=== PATIENT | male | born 1970 | race Caucasian/White ===

== ENCOUNTER 2023-04-24 10:30 | Day surgery (SDC) | payer BC ==
[2023-04-23 09:59] LABS: Absolute Lymphocytes (CBC) 2.7 K/uL (0.7-4.9); Hematocrit 43.6 % (39.6-49.0); Lymphocytes % 36.4 % (15.3-44.8); MCV 92.4 fL (80-100); MPV 8.6 fL (7.6-11.3); Platelets 194 thou/uL (152-406); RBC Red Blood Cell Count 4.71 M/uL (4.33-5.43)
--- NOTE | 2023-04-23 10:03 | RAD REPORT ---
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 COMPARISON: Chest Single View dated 01/09/2023; Chest Single View dated 12/15/2015 TECHNIQUE: PA and lateral views of the chest were obtained. FINDINGS: The lungs are hyperexpanded compatible with COPD. The heart is upper limit of normal in si ze. No fracture or aggressive bony process. IMPRESSION: COPD without acute process identified. The USPSTF recommends annual screening for lung cancer with low-dose CT (LDCT) in adults aged 50 to 8 0 years who have a 20 pack-year smoking history and currently smoke or have quit within the past 15 y ears.
[2023-04-23 10:13] LABS: Potassium 4.8 mEq/L (3.5-5.1)
[2023-04-23 10:18] LABS: Protime INR 0.98
--- NOTE | 2023-04-23 12:18 | EKG ---
Test Date: 2023-04-23 Test Time: 10:35:44 Dance Professor: EMBER MEASUREMENT RESULTS: Intervals: Rate: 54 FL: 172 QRSD: 156 QT: 514 QTc: 487 [place]: P: 43 FL: 172 QRS: 3 T: 58 INTERPRETIVE STATEMENTS: Sinus bradycardia Left bundle branch block Abnormal ECG Compared to ECG 01/09/2023 22:00:36 Left bundle-branch block now present Myocardial infarct finding no longer present Electronically Signed On 04-23-23 12:18:16 SUPERVISOR ORDER TAKERS by Saman Miller
[2023-04-24] MEDS ORDERED: VERAPAMIL HCL 10 MG/4 ML VIAL IV ONE (10:54)
[2023-04-24] MEDS ORDERED: HEPA 1000U/500MLS 2,000 UNIT/1,000 ML BAG IV ONE (10:54)
[2023-04-24] MEDS ORDERED: LIDOCAINE 1% 20 ML MDV ONE (10:54)
[2023-04-24] MEDS ORDERED: ATROPINE SULF 1 MG/10 ML SYR IV ONE (10:55)
[2023-04-24] MEDS ORDERED: HEPARIN 5000 UNIT/ML 1 ML VIAL ONE (10:55)
[2023-04-24] MEDS ORDERED: MIDAZOLAM HCL 2 MG/2 ML INJ ONE (10:55)
[2023-04-24] MEDS ORDERED: HEPARIN 10,000 UNIT/10 ML VIAL IV ONE (10:55)
[2023-04-24] MEDS ORDERED: FENTANYL CITR 100 MCG/2 ML ONE (10:55)
[2023-04-24] MEDS ORDERED: ASPIRIN 325 MG TAB ONE (10:56)
[2023-04-24] MEDS ORDERED: ONDANSETRON 4 MG/2 ML VIAL ONE (11:42)
--- NOTE | 2023-04-24 14:55 | OP ---
Date of Procedure: 04/24/2023 Surgeon: MAREN JOHNSON Procedures Performed: 1.Selective coronary angiogram. 2.Left heart catheterization. 3.PCI of mid right PDA severe stenosis, I used 2.5 x 60 mm Synergy drug-eluting stent. Indication: Unstable angina with no coronary artery disease. Access: Right radial artery 6-American closed with TR band. Complications: None. Bleeding: Less than 20 mL. Anesthesia: Total sedation time was 1 hour. Description Of Procedure: After risks, benefits, alternatives were explained, patient agreed to proc edure and signed informed consent. The patient was brought into cardiac catheterization laboratory, prepped and draped in the usual sterile fashion. Then, I accessed right radial artery using [employer] c micropuncture kit, placed a 6-American Slender sheath and took 5-American [place] 4.0 catheter into the a ortic root, engaged the left main and the right coronary artery, took standard views. Catheter was p ushed over the wire into the LV, measured the LVEDP. Pullback did not record any gradient. Then I g ave systemic heparin to assure ACT level above 250. Patient is already on Brilinta and aspirin. The n I took a 6-American JR4 guide over J-wire into the aortic root, engaged the RCA, and took a Runthroug h wire into the RCA, placed it distally and crossing the PDA stenosis and using a 2.5 x 12 mm Complia nt balloon, lesion was pre-dilated and expanded well and then I placed 2.5 x 60 mm Synergy drug-eluti ng stent with excellent expansion. Then, I removed the wire. Final angiogram was satisfactory and willie claire I removed the guide and the sheath. TR band was used for closure with good hemostasis. Findings: 1.Left main; small, diffuse 10% to 20% stenosis. 2.LAD; small vessel, diffuse proximal 30% to 40% and mid luminal irregularities and distal diffuse 3 0% to 40% stenosis and luminal irregularities of all his diagonals. 3.Left circumflex; moderate-sized vessel with luminal irregularities. 4.RCA; large and dominant, largest vessel he has and widely patent proximal RCA stent. Mid 40% foca l stenosis and then there is a PDA at the proximal segment 80% stenosis and long lesion, status post successful PCI and luminal irregularities in the rest of the PDA and PLB. 5.LVEDP is borderline at 12 mmHg. Conclusion: 1.Severe mid and proximal right PDA stenosis, status post successful PCI. 2.Moderate coronary artery disease elsewhere and widely patent proximal RCA stent. Plan: Aspirin, Brilinta, and statin. SR/MODL Voice ID: [id number] Report ID: [id number]
[2023-04-24] MEDS ORDERED: TICAGRELOR 90 MG TABLET PO ONE ×2 (16:00→16:12)
[2023-04-24 16:29] VITALS: BP 117/64; O2SAT 100
== END 2023-04-24 16:28 | disposition home or self-care (01) ==
LOC: CCL 10:30
PROVIDERS: ATTEND Internal Medicine
DX: I25.110 Atherosclerotic heart disease of native coronary artery with unstable angina pectoris (principal); I10 Essential (primary) hypertension; E78.5 Hyperlipidemia, unspecified; I44.7 Left bundle-branch block, unspecified; I65.29 Occlusion and stenosis of unspecified carotid artery; Z95.5 Presence of coronary angioplasty implant and graft; Z79.899 Other long term (current) drug therapy
CPT/HCPCS: 93005; 85025; 80048; 36415; 83721; 85610; 85730; 71046; 92928; 93458; 76937; C1893; Q9967; C1725; J1644; J2001; J2250; J3010; J2405; 99152; 99153; J0461